=== PATIENT | female | born 1940 | race Caucasian/White ===

== ENCOUNTER → 2017-05-23 13:00 | Outpatient (CLI) | payer MEDICARE, OTHER ==
[2014-09-08 14:30] VITALS: BMI 45.4
[~2017-05-23 13:00] MED LIST: DEMEROL50 MG PO; ELIQUIS2.5 MG PO; HYDROCHLOROTH12.5 M1; PERCOCET 10/3251 TA1 PO; SYNTHROID100 MCG PO
== END | disposition home or self-care (01) ==
LOC: D.US 13:00
DX: I82.403 Acute embolism and thrombosis of unspecified deep veins of lower extremity, bilateral (principal); I26.99 Other pulmonary embolism without acute cor pulmonale

== ENCOUNTER → 2019-02-22 09:06 | Outpatient (CLI) | payer MEDICARE, OTHER ==
[2014-09-08 14:30] VITALS: BMI 45.4
== END | disposition home or self-care (01) ==
LOC: D.HCCARDIO 09:06 → D.HCCECHO 11:00
PROVIDERS: ATTEND Internal Medicine Cardiovascular Disease
DX: I20.9 Angina pectoris, unspecified (principal); I34.0 Nonrheumatic mitral (valve) insufficiency